=== PATIENT | female | born 1995 | race Caucasian/White ===

== ENCOUNTER 2020-10-12 16:40 | Emergency (ER) | payer OTHER, MEDICAID ==
[~2020-10-12] VITALS: Ht 170.2 cm; Wt 95.3 kg
[2020-10-12] MEDS ORDERED: ACYCLOVIR 200200 MG PO (16:49)
[2020-10-12] MEDS ORDERED: BUSPIRONE HCL10 MG PO (16:49)
[2020-10-12] MEDS ORDERED: NAPROSYN500 MG PO (18:56)
[2020-10-12 19:25] VITALS: BP 120/70
== END 2020-10-12 19:25 | disposition home or self-care (01) ==
LOC: M.ERS 16:40
DX: S63.8X1A Sprain of other part of right wrist and hand, initial encounter (principal); W22.8XXA Striking against or struck by other objects, initial encounter; Y93.89 Activity, other specified; Y92.89 Other specified places as the place of occurrence of the external cause; Y99.8 Other external cause status